=== PATIENT | female | born 1995 | race Caucasian/White ===

== ENCOUNTER 2022-07-20 08:34 | Inpatient (IN) | payer OTHER ==
[~2022-07-20] VITALS: Ht 160 cm; Wt 81.6 kg
[~2022-07-20 08:34] MED LIST: COLACE 100MG C100 MG PO; IBUPROFEN600 MG PO; NORCO 5-325 TA1 EACH PO
[2022-07-20 09:51] LABS: HEMOGLOBIN 12.6 gm/dl (12.3-15.3); RED BLOOD COUNT 4.02 M/UL (4.00-5.10); WHITE BLOOD COUNT 13.8 K/UL (4.5-11.0)
[2022-07-20] MEDS ORDERED: IBUPROFEN800 MG PO (13:56)
[2022-07-20] MEDS ORDERED: COLACE 100MG C100 MG PO (13:56)
[2022-07-21 06:01] LABS: HEMOGLOBIN 11.9 gm/dl (12.3-15.3)
[2022-07-21] MEDS ORDERED: HYDROCODON-ACE1 EAC4 PO (12:55)
== END 2022-07-21 16:40 | disposition home or self-care (01) | DRG 807 ==
LOC: GENOP 08:34 → EDSTATUS 08:35 → OB 09:14
PROVIDERS: ADMIT Obstetrics & Gynecology
PROC: 10E0XZZ Delivery of Products of Conception, External Approach (ICD-10-PCS; principal; 2022-07-20)
PROC: 0KQM0ZZ Repair Perineum Muscle, Open Approach (ICD-10-PCS; 2022-07-20)
PROC: 10907ZC Drainage of Amniotic Fluid, Therapeutic from Products of Conception, Via Natural or Artificial Opening (ICD-10-PCS; 2022-07-20)
PROC: 3E033VJ Introduction of Other Hormone into Peripheral Vein, Percutaneous Approach (ICD-10-PCS; 2022-07-20)
DX: O99.824 Streptococcus B carrier state complicating childbirth (principal); Z37.0 Single live birth; O99.334 Smoking (tobacco) complicating childbirth; F17.200 Nicotine dependence, unspecified, uncomplicated; O70.1 Second degree perineal laceration during delivery; Z28.310 Unvaccinated for COVID-19; Z3A.39 39 weeks gestation of pregnancy; Z82.49 Family history of ischemic heart disease and other diseases of the circulatory system; Z83.3 Family history of diabetes mellitus; Z88.2 Allergy status to sulfonamides
CPT/HCPCS: 36415; 82800; 85014; 85018; 85025; 90715; C9113; J2210; J2405; J2590